=== PATIENT | female | born 1975 | race Caucasian/White ===

== ENCOUNTER 2022-04-19 15:22 | Inpatient (IN) | payer BC, MEDICARE ==
[2022-04-19] MEDS ORDERED: Ondansetron 4 MG/2 ML SDV IVPUSH PRN (15:50)
[2022-04-19] MEDS ORDERED: Folic Acid 50 MG/10 ML MDV IV SCH (16:00)
[2022-04-19] MEDS ORDERED: Dextrose 5%-Lactated Ringers 1,000 ML IV SCH (16:00)
[2022-04-19] MEDS: HYDROmorphone 0.5 MG/0.5 ML Syringe IVPUSH PRN ×3 (16:20→22:45)
[2022-04-19 16:39] LABS: ESTIMATED GFR 116 mL/min (>60)
[2022-04-19] MEDS ORDERED: Enoxaparin 40 MG/0.4 ML Syringe SUBCUT ONE (17:00)
[2022-04-19] MEDS: Potassium Chloride 10 MEQ in Premix Bag 1 BAG IV SCH ×3 (17:12→20:38)
[2022-04-19] MEDS: Pantoprazole 40 MG Vial IVPUSH SCH (17:13)
[2022-04-19] MEDS: Thiamine 100 MG in Sodium Chloride 0.9% 100 ML IV SCH (17:16)
[2022-04-19] MEDS: MVI, Adult with Vitamin K 10 ML in Sodium Chloride 0.9% 1,000 ML IV SCH ×2 (17:16)
[2022-04-19] MEDS: Folic Acid 1 MG in Sodium Chloride 0.9% 50 ML IV SCH (17:17)
[2022-04-19] MEDS ORDERED: Magnesium Sulfate/Water 2 GM in Premix Bag 1 BAG IV ONE (21:30)
[2022-04-20] MEDS: HYDROmorphone 0.5 MG/0.5 ML Syringe IVPUSH PRN ×3 (03:47→13:24)
[2022-04-20] MEDS: Pantoprazole 40 MG Vial IVPUSH SCH (08:13)
[2022-04-20] MEDS: Thiamine 100 MG in Sodium Chloride 0.9% 100 ML IV SCH (08:15)
[2022-04-20] MEDS: Folic Acid 1 MG in Sodium Chloride 0.9% 50 ML IV SCH (09:27)
[2022-04-20] MEDS ORDERED: fentaNYL 250 MCG/5 ML SDV ONE ×2 (10:59→16:30)
[2022-04-20] MEDS ORDERED: Rocuronium 50 MG/5 ML Vial ONE ×3 (11:00→18:28)
[2022-04-20] MEDS ORDERED: Ondansetron 4 MG/2 ML SDV ONE (11:00)
[2022-04-20] MEDS ORDERED: Succinylcholine 200 MG/10 ML MDV ONE (11:00)
[2022-04-20] MEDS ORDERED: Propofol 200 MG/20 ML SDV ONE (11:00)
[2022-04-20] MEDS ORDERED: Dexamethasone 4 MG/ML SDV ONE (11:00)
[2022-04-20] MEDS ORDERED: Glycopyrrolate 0.2 MG/ML 5 ML MDV ONE (11:00)
[2022-04-20] MEDS ORDERED: Neostigmine Methylsulfate 1 MG/ML 5 ML Syringe ONE (11:00)
[2022-04-20] MEDS ORDERED: Bupivacaine 0.5% 50 ML MDV ONE (12:10)
[2022-04-20] MEDS ORDERED: Meropenem 500 MG SDV ONE (12:10)
[2022-04-20] MEDS ORDERED: Lidocaine 1% with EPINEPHrine 1:100,000 50 ML MDV ONE (12:10)
[2022-04-20] MEDS: MVI, Adult with Vitamin K 10 ML in Sodium Chloride 0.9% 1,000 ML IV SCH ×2 (13:24)
[2022-04-20] MEDS ORDERED: Ropivacaine 40 ML, dexAMETHasone 8 MG, EPINEPHrine 0.4 MG, Sodium Chloride 0.9% 37.6 ML NERVRT SCH ×4 (14:00)
[2022-04-20] MEDS ORDERED: Ketamine 14 MG in Sodium Chloride 0.9% 19.86 ML IV SCH (14:00)
[2022-04-20] MEDS ORDERED: Ketamine 500 MG/5 ML MDV IV SCH (14:00)
[2022-04-20] MEDS ORDERED: cefOXitin 2 GM in Sodium Chloride 0.9% 50 ML IV ONE (14:00)
[2022-04-20] MEDS ORDERED: MVI, Adult with Vitamin K 10 ML, Thiamine 200 MG, Chromium/Copper/Mang/Selen/Zn 1 ML in... IV SCH ×4 (16:00)
[2022-04-20] MEDS ORDERED: diphenhydrAMINE 25 MG Cap PO PRN (16:29)
[2022-04-20] MEDS ORDERED: Ondansetron 4 MG/2 ML SDV IVPUSH PRN ×2 (16:29→19:50)
[2022-04-20] MEDS ORDERED: diphenhydrAMINE 50 MG/ML SDV IVPUSH PRN (16:29)
[2022-04-20] MEDS ORDERED: Naloxone 0.4 MG/ML SDV IVPUSH PRN (16:29)
[2022-04-20] MEDS ORDERED: Linezolid 600 MG/300 ML Premix Bag IRR ONE (16:33)
[2022-04-20] MEDS: HYDROmorphone/Normal Saline 6 MG/30 ML PCA Vial IV PRN (16:38)
[2022-04-20] MEDS ORDERED: Naloxone 0.4 MG/ML SDV IV PRN (17:00)
[2022-04-20] MEDS ORDERED: Lactated Ringers 1,000 ML ONE ×2 (17:40→17:41)
[2022-04-20] MEDS ORDERED: fentaNYL 100 MCG/2 ML SDV ONE (18:30)
[2022-04-20] MEDS ORDERED: Acetaminophen 500 MG Tab PO PRN (19:50)
[2022-04-20] MEDS ORDERED: Dextrose 5%-Lactated Ringers 1,000 ML IV SCH ×2 (19:50→21:30)
[2022-04-20] MEDS ORDERED: Metoclopramide 10 MG/2 ML SDV IVPUSH PRN (19:50)
[2022-04-20] MEDS ORDERED: Labetalol 20 MG/4 ML Syringe IVPUSH PRN (19:50)
[2022-04-20] MEDS ORDERED: Scopolamine 1.5 MG Transdermal Patch ONE (20:11)
[2022-04-20] MEDS ORDERED: Labetalol 100 MG/20 ML MDV IVPUSH PRN (21:22)
[2022-04-20] MEDS: cefOXitin 2 GM in Sodium Chloride 0.9% 50 ML IV SCH (21:59)
[2022-04-20] MEDS ORDERED: Pantoprazole 40 MG Vial IVPUSH SCH (22:00)
[2022-04-21] MEDS: HYDROmorphone/Normal Saline 6 MG/30 ML PCA Vial IV PRN ×3 (02:24→22:47)
[2022-04-21] MEDS: cefOXitin 2 GM in Sodium Chloride 0.9% 50 ML IV SCH ×4 (05:01→21:28)
[2022-04-21 05:30] LABS: ESTIMATED GFR 116 mL/min (>60)
[2022-04-21] MEDS: Dextrose 5%-Lactated Ringers 1,000 ML IV SCH (08:51)
[2022-04-21] MEDS: Acetaminophen 500 MG Tab PO SCH ×3 (09:15→23:31)
[2022-04-21] MEDS: SCOPOLAMINE PATCH CHECK TOP SCH (10:21)
[2022-04-21] MEDS: Celecoxib 200 MG Cap PO SCH ×2 (10:21→20:54)
[2022-04-21] MEDS: Magnesium Sulfate/Water 2 GM/50 ML BAG IV SCH ×3 (10:54→21:27)
[2022-04-21] MEDS: hydrOXYzine HCL 100 MG/2 ML SDV IM PRN (13:33)
[2022-04-21] MEDS: MVI, Adult with Vitamin K 10 ML, Thiamine 200 MG, Zinc/Copper/Manganese/Selenium 1 ML i... IV SCH ×4 (17:42)
[2022-04-21] MEDS: Pantoprazole 40 MG Tab.CR PO SCH (20:54)
[2022-04-22] MEDS: diphenhydrAMINE 50 MG/ML SDV IVPUSH PRN ×3 (02:41→18:32)
[2022-04-22] MEDS: cefOXitin 2 GM in Sodium Chloride 0.9% 50 ML IV SCH ×4 (02:59→22:24)
[2022-04-22] MEDS: Magnesium Sulfate/Water 2 GM/50 ML BAG IV SCH ×4 (03:45→20:28)
[2022-04-22] MEDS ORDERED: Iopamidol 612 MG/ML 30 ML SDV PO ONE (04:20)
[2022-04-22 04:51] LABS: ESTIMATED GFR 107 mL/min (>60)
[2022-04-22] MEDS: HYDROmorphone/Normal Saline 6 MG/30 ML PCA Vial IV PRN ×2 (05:31→19:14)
[2022-04-22] MEDS ORDERED: Cyanocobalamin (Vitamin B12) 1,000 MCG/ML SDV IM ONE (09:00)
[2022-04-22] MEDS: Acetaminophen 500 MG Tab PO SCH ×2 (09:05→17:05)
[2022-04-22] MEDS: Celecoxib 200 MG Cap PO SCH ×3 (09:05→20:31)
[2022-04-22] MEDS: SCOPOLAMINE PATCH CHECK TOP SCH (09:06)
[2022-04-22] MEDS: MVI, Adult with Vitamin K 10 ML, Thiamine 200 MG, Zinc/Copper/Manganese/Selenium 1 ML i... IV SCH ×4 (17:05)
[2022-04-22] MEDS: Dextrose 5%-Lactated Ringers 1,000 ML IV SCH (17:06)
[2022-04-22] MEDS: Pantoprazole 40 MG Tab.CR PO SCH (20:31)
[2022-04-23] MEDS: Acetaminophen 500 MG Tab PO SCH ×3 (00:03→15:08)
[2022-04-23] MEDS: diphenhydrAMINE 50 MG/ML SDV IVPUSH PRN ×4 (00:26→22:09)
[2022-04-23] MEDS: Magnesium Sulfate/Water 2 GM/50 ML BAG IV SCH ×4 (03:17→20:00)
[2022-04-23] MEDS: Dextrose 5%-Lactated Ringers 1,000 ML IV SCH ×2 (04:22→17:30)
[2022-04-23] MEDS: cefOXitin 2 GM in Sodium Chloride 0.9% 50 ML IV SCH ×4 (04:23→22:14)
[2022-04-23] MEDS: HYDROmorphone/Normal Saline 6 MG/30 ML PCA Vial IV PRN (05:01)
[2022-04-23] MEDS ORDERED: Meropenem 500 MG SDV ONE (06:31)
[2022-04-23] MEDS ORDERED: Lidocaine 1% with EPINEPHrine 1:100,000 50 ML MDV ONE (06:32)
[2022-04-23] MEDS ORDERED: Bupivacaine 0.5% 50 ML MDV ONE (06:33)
[2022-04-23] MEDS ORDERED: Propofol 200 MG/20 ML SDV ONE ×3 (06:55→07:48)
[2022-04-23] MEDS ORDERED: fentaNYL 100 MCG/2 ML SDV ONE (06:56)
[2022-04-23] MEDS ORDERED: Midazolam 1 MG/ML 2 ML SDV ONE (06:56)
[2022-04-23] MEDS ORDERED: Ropivacaine 40 ML, dexAMETHasone 8 MG, EPINEPHrine 0.4 MG, Sodium Chloride 0.9% 37.6 ML NERVRT SCH ×4 (07:15)
[2022-04-23] MEDS ORDERED: Bupivacaine 0.5% 50 ML MDV INFILT ONE ×2 (07:29)
[2022-04-23] MEDS ORDERED: Lidocaine 1% with EPINEPHrine 1:100,000 50 ML MDV INFILT ONE ×2 (07:31)
[2022-04-23] MEDS ORDERED: Meropenem 500 MG SDV IRR ONE (07:33)
[2022-04-23] MEDS: Celecoxib 200 MG Cap PO SCH ×2 (09:29→20:00)
[2022-04-23] MEDS: HYDROmorphone 2 MG Tab PO PRN ×3 (12:42→22:09)
[2022-04-23] MEDS: Pantoprazole 40 MG Tab.CR PO SCH (20:00)
[2022-04-24] MEDS: Acetaminophen 500 MG Tab PO SCH ×4 (00:39→23:21)
[2022-04-24] MEDS: HYDROmorphone 2 MG Tab PO PRN ×6 (02:27→23:20)
[2022-04-24] MEDS: Magnesium Sulfate/Water 2 GM/50 ML BAG IV SCH (02:27)
[2022-04-24] MEDS: cefOXitin 2 GM in Sodium Chloride 0.9% 50 ML IV SCH ×3 (04:29→16:04)
[2022-04-24] MEDS: Dextrose 5%-Lactated Ringers 1,000 ML IV SCH ×2 (06:34→17:38)
[2022-04-24] MEDS: diphenhydrAMINE 50 MG/ML SDV IVPUSH PRN ×3 (07:11→16:09)
[2022-04-24] MEDS: Celecoxib 200 MG Cap PO SCH ×2 (08:19→21:04)
[2022-04-24] MEDS ORDERED: Magnesium Hydroxide 400 MG/5 ML Susp 30 ML Cup PO ONE (10:00)
[2022-04-24] MEDS: Docusate Sodium 100 MG Cap PO SCH ×2 (10:28→21:04)
[2022-04-24] MEDS: Bisacodyl 5 MG Tab PO SCH ×2 (10:28→21:04)
[2022-04-24] MEDS: Cyclobenzaprine 10 MG Tab PO PRN ×2 (12:55→23:25)
[2022-04-24] MEDS: hydrOXYzine HCL 100 MG/2 ML SDV IM PRN (13:11)
[2022-04-24] MEDS ORDERED: Magnesium Hydroxide 400 MG/5 ML Susp 30 ML Cup PO PRN (18:00)
[2022-04-24] MEDS: Pantoprazole 40 MG Tab.CR PO SCH (21:05)
[2022-04-24] MEDS: diphenhydrAMINE 50 MG/ML SDV IM PRN (21:24)
[2022-04-25] MEDS: HYDROmorphone 2 MG Tab PO PRN ×3 (03:36→11:57)
[2022-04-25] MEDS: diphenhydrAMINE 50 MG/ML SDV IM PRN ×2 (05:07→10:06)
[2022-04-25] MEDS: hydrOXYzine HCL 100 MG/2 ML SDV IM PRN (07:46)
[2022-04-25] MEDS: Acetaminophen 500 MG Tab PO SCH (07:53)
[2022-04-25] MEDS: Bisacodyl 5 MG Tab PO SCH (10:03)
[2022-04-25] MEDS: Docusate Sodium 100 MG Cap PO SCH (10:03)
[2022-04-25] MEDS: Celecoxib 200 MG Cap PO SCH (10:03)
[2022-04-25 11:09] LABS: VITAMIN E(ALPHA TOCOPHEROL) 6.7 mg/L (7.0-25.1); VITAMIN E(GAMMA TOCOPHEROL) 0.9 mg/L (0.5-5.5)
== END 2022-04-25 12:20 | disposition home or self-care (01) | DRG 221 ==
LOC: JP.MS 15:22 → MERGE 15:50 → OBSVTOIN 15:50
PROVIDERS: ADMIT Surgery; ATTEND Surgery
PROC: 0DB80ZZ Excision of Small Intestine, Open Approach (ICD-10-PCS; principal; 2022-04-20)
PROC: 0WPF0JZ Removal of Synthetic Substitute from Abdominal Wall, Open Approach (ICD-10-PCS; 2022-04-20)
PROC: 0WBF0ZX Excision of Abdominal Wall, Open Approach, Diagnostic (ICD-10-PCS; 2022-04-20)
PROC: 0WUF0JZ Supplement Abdominal Wall with Synthetic Substitute, Open Approach (ICD-10-PCS; 2022-04-23)
DX: K95.89 Other complications of other bariatric procedure (principal); Y84.8 Other medical procedures as the cause of abnormal reaction of the patient, or of later complication, without mention of misadventure at the time of the procedure; K56.50 Intestinal adhesions [bands], unspecified as to partial versus complete obstruction; M19.90 Unspecified osteoarthritis, unspecified site; K65.1 Peritoneal abscess; G89.29 Other chronic pain; M54.9 Dorsalgia, unspecified; E53.8 Deficiency of other specified B group vitamins; Z96.643 Presence of artificial hip joint, bilateral; Z88.8 Allergy status to other drugs, medicaments and biological substances; Z98.890 Other specified postprocedural states; Z98.84 Bariatric surgery status; Z88.2 Allergy status to sulfonamides
CPT/HCPCS: 36415; 74240; 74240-26; 80048; 80053; 82306; 82525; 82607; 82728; 82746; 83550; 83605; 83735; 83880; 84100; 84207; 84425; 84446; 84590; 84630; 85025; 85027; 85610; 87070; 87075; 87205; 88300; 88304; 88305; 88307; A9270-GY; C9113; J0131; J0171; J0330; J0694; J1100; J1170; J1200; J1650; J2020; J2185; J2250; J2405; J2704; J2710; J2795; J3010; J3410; J3411; J3420; J3475; J3480; J3490; J7030; J7120; J7121; Q9967

== ENCOUNTER 2022-05-01 17:43 | Inpatient (IN) | payer BC, MEDICARE ==
[2022-05-01] MEDS ORDERED: Non-Formulary Medication 1 Each (Valacyclovir Hcl [Valtrex] 500 MG Tablet) PO PRN (17:50)
[2022-05-01] MEDS ORDERED: Cyclobenzaprine 10 MG Tab PO PRN (17:50)
[2022-05-01] MEDS ORDERED: Ergocalciferol (Vitamin D2) 1.25 MG Cap PO SCH (18:00)
[2022-05-01] MEDS: HYDROmorphone 0.5 MG/0.5 ML Syringe IVPUSH PRN ×2 (18:41→21:57)
[2022-05-01 19:26] LABS: CORONAVIRUS COVID-19 NAA NEGATIVE (NEGATIVE)
[2022-05-01] MEDS: Ondansetron 4 MG/2 ML SDV IVPUSH PRN (20:13)
[2022-05-01] MEDS: Dextrose 5%-Lactated Ringers 1,000 ML IV SCH (21:57)
[2022-05-02] MEDS: HYDROmorphone 0.5 MG/0.5 ML Syringe IVPUSH PRN ×11 (00:02→22:35)
[2022-05-02] MEDS: Ondansetron 4 MG/2 ML SDV IVPUSH PRN ×5 (02:19→22:35)
[2022-05-02] MEDS ORDERED: Iopamidol 612 MG/ML 30 ML SDV PO ONE (04:13)
[2022-05-02] MEDS: Dextrose 5%-Lactated Ringers 1,000 ML IV SCH ×2 (05:54→15:16)
[2022-05-02] MEDS: Pantoprazole 40 MG Tab.CR PO SCH (08:42)
[2022-05-02] MEDS: Cetirizine 10 MG Tab PO SCH (08:42)
[2022-05-02] MEDS: hydrOXYzine HCl 25 MG Tab PO PRN (08:45)
[2022-05-02] MEDS: Azithromycin 125 MG in Sodium Chloride 0.9% 100 ML IV SCH ×2 (10:53→22:25)
[2022-05-03] MEDS: Dextrose 5%-Lactated Ringers 1,000 ML IV SCH ×4 (00:21→23:59)
[2022-05-03] MEDS: HYDROmorphone 0.5 MG/0.5 ML Syringe IVPUSH PRN ×9 (01:45→23:59)
[2022-05-03] MEDS: Ondansetron 4 MG/2 ML SDV IVPUSH PRN ×4 (03:41→21:25)
[2022-05-03 05:19] LABS: ESTIMATED GFR 116 mL/min (>60)
[2022-05-03] MEDS ORDERED: Scopolamine 1.5 MG Transdermal Patch TRDERM PRN (07:58)
[2022-05-03] MEDS: Cetirizine 10 MG Tab PO SCH (08:42)
[2022-05-03] MEDS: Pantoprazole 40 MG Tab.CR PO SCH (08:42)
[2022-05-03] MEDS ORDERED: Propofol 200 MG/20 ML SDV ONE (09:25)
[2022-05-03] MEDS ORDERED: fentaNYL 50 MCG/ML SDV ONE (09:25)
[2022-05-03] MEDS ORDERED: Midazolam 1 MG/ML 2 ML SDV ONE (09:25)
[2022-05-03] MEDS: Azithromycin 125 MG in Sodium Chloride 0.9% 100 ML IV SCH ×2 (09:47→21:20)
[2022-05-03] MEDS ORDERED: Lidocaine 1% 2 ML ONE (10:17)
[2022-05-04] MEDS ORDERED: Ondansetron 4 MG Tab.DIS PO PRN (00:12)
[2022-05-04] MEDS: Pantoprazole 40 MG Tab.CR PO SCH (07:36)
[2022-05-04] MEDS: HYDROmorphone 2 MG Tab PO PRN ×4 (08:10→23:27)
[2022-05-04] MEDS: VERIFY SCOP PATCH TOP SCH (08:11)
[2022-05-04] MEDS: Cetirizine 10 MG Tab PO SCH (08:12)
[2022-05-04] MEDS: Metoclopramide 10 MG Tab PO SCH ×3 (09:25→21:58)
[2022-05-04] MEDS: hydrOXYzine HCl 25 MG Tab PO PRN (09:27)
[2022-05-04] MEDS: Bisacodyl 5 MG Tab PO SCH ×2 (09:43→21:58)
[2022-05-04] MEDS: Docusate Sodium 100 MG Cap PO SCH ×2 (09:43→21:58)
[2022-05-05] MEDS: HYDROmorphone 2 MG Tab PO PRN ×5 (03:37→23:35)
[2022-05-05] MEDS: Metoclopramide 10 MG Tab PO SCH ×4 (03:37→21:31)
[2022-05-05] MEDS ORDERED: Bupivacaine 0.5% 50 ML MDV ONE (06:55)
[2022-05-05] MEDS ORDERED: Lidocaine 1% with EPINEPHrine 1:100,000 50 ML MDV ONE (06:56)
[2022-05-05] MEDS ORDERED: fentaNYL 100 MCG/2 ML SDV ONE (07:06)
[2022-05-05] MEDS ORDERED: Midazolam 1 MG/ML 2 ML SDV ONE (07:06)
[2022-05-05] MEDS ORDERED: Propofol 200 MG/20 ML SDV ONE ×2 (07:06→07:29)
[2022-05-05] MEDS ORDERED: Sodium Chloride 0.9% 10 ML ONE (07:19)
[2022-05-05] MEDS ORDERED: Lidocaine 1% with EPINEPHrine 1:100,000 20 ML MDV INJECT ONE (07:40)
[2022-05-05] MEDS ORDERED: Bupivacaine 0.5% 50 ML MDV INJECT ONE (07:40)
[2022-05-05] MEDS ORDERED: Dextrose 5%-Lactated Ringers 1,000 ML IV SCH (09:00)
[2022-05-05] MEDS: Docusate Sodium 100 MG Cap PO SCH ×2 (09:18→21:31)
[2022-05-05] MEDS: Cetirizine 10 MG Tab PO SCH (09:18)
[2022-05-05] MEDS: VERIFY SCOP PATCH TOP SCH (09:18)
[2022-05-05] MEDS: Pantoprazole 40 MG Tab.CR PO SCH (09:18)
[2022-05-05] MEDS: Bisacodyl 5 MG Tab PO SCH ×2 (09:18→21:31)
[2022-05-05] MEDS: Magnesium Sulfate/Water 2 GM in Premix Bag 1 BAG IV SCH ×3 (10:05→21:33)
[2022-05-05] MEDS: 1: AA 5%/Calcium/D15W/Lytes 1,000 ML with MVI, Adult with Vitamin K 10 ML, Zinc/Copper/M IV SCH ×6 (11:00→23:39)
[2022-05-05] MEDS: Fat Emulsion 100 ML IV SCH (17:19)
[2022-05-06] MEDS: Magnesium Sulfate/Water 2 GM in Premix Bag 1 BAG IV SCH ×4 (03:23→21:45)
[2022-05-06] MEDS: Metoclopramide 10 MG Tab PO SCH ×4 (03:23→21:46)
[2022-05-06] MEDS: HYDROmorphone 2 MG Tab PO PRN ×5 (03:24→20:10)
[2022-05-06 04:57] LABS: ESTIMATED GFR 123 mL/min (>60)
[2022-05-06] MEDS ORDERED: Central Total Parenteral Nutrition Bag SCH (07:30)
[2022-05-06] MEDS: Pantoprazole 40 MG Tab.CR PO SCH (07:45)
[2022-05-06] MEDS: Bisacodyl 5 MG Tab PO SCH ×2 (08:34→20:10)
[2022-05-06] MEDS: Docusate Sodium 100 MG Cap PO SCH ×2 (08:34→20:10)
[2022-05-06] MEDS: Cetirizine 10 MG Tab PO SCH (08:34)
[2022-05-06] MEDS: VERIFY SCOP PATCH TOP SCH (08:34)
[2022-05-06] MEDS: 1: AA 5%/Calcium/D15W/Lytes 1,000 ML with MVI, Adult with Vitamin K 10 ML, Zinc/Copper/M IV SCH ×3 (11:59)
[2022-05-06] MEDS: hydrOXYzine HCl 25 MG Tab PO PRN (14:27)
[2022-05-06] MEDS: Fat Emulsion 100 ML IV SCH (16:05)
[2022-05-07] MEDS: HYDROmorphone 2 MG Tab PO PRN ×3 (00:22→08:15)
[2022-05-07] MEDS: 1: AA 5%/Calcium/D15W/Lytes 1,000 ML with MVI, Adult with Vitamin K 10 ML, Zinc/Copper/M IV SCH ×3 (00:22)
[2022-05-07] MEDS: Metoclopramide 10 MG Tab PO SCH ×2 (04:08→09:08)
[2022-05-07] MEDS: Magnesium Sulfate/Water 2 GM in Premix Bag 1 BAG IV SCH ×2 (04:10→09:08)
[2022-05-07 05:05] LABS: ESTIMATED GFR 123 mL/min (>60)
[2022-05-07] MEDS: Pantoprazole 40 MG Tab.CR PO SCH (07:38)
[2022-05-07] MEDS: Docusate Sodium 100 MG Cap PO SCH (08:15)
[2022-05-07] MEDS: Cetirizine 10 MG Tab PO SCH (08:15)
[2022-05-07] MEDS: Bisacodyl 5 MG Tab PO SCH (08:15)
[2022-05-07] MEDS: VERIFY SCOP PATCH TOP SCH (08:16)
[2022-05-08] MEDS ORDERED: 1: AA 5%/Calcium/D15W/Lytes 1,000 ML with MVI, Adult with Vitamin K 10 ML, Zinc/Copper/M IV SCH ×3 (01:00)
== END 2022-05-07 10:20 | disposition home or self-care (01) | DRG 950 ==
LOC: JP.MS 17:43
PROVIDERS: ADMIT Family Medicine; ATTEND Surgery
PROC: 0DJ08ZZ Inspection of Upper Intestinal Tract, Via Natural or Artificial Opening Endoscopic (ICD-10-PCS; principal; 2022-05-03)
PROC: 02H633Z Insertion of Infusion Device into Right Atrium, Percutaneous Approach (ICD-10-PCS; 2022-05-05)
DX: R10.9 Unspecified abdominal pain (principal); G89.29 Other chronic pain; M54.9 Dorsalgia, unspecified; Z96.642 Presence of left artificial hip joint; D50.9 Iron deficiency anemia, unspecified; E66.01 Morbid (severe) obesity due to excess calories; K59.00 Constipation, unspecified; Z98.890 Other specified postprocedural states; Z88.2 Allergy status to sulfonamides; Z98.84 Bariatric surgery status; Z88.5 Allergy status to narcotic agent; Z88.8 Allergy status to other drugs, medicaments and biological substances; Z79.82 Long term (current) use of aspirin; Z79.899 Other long term (current) drug therapy; Z90.49 Acquired absence of other specified parts of digestive tract; Z98.1 Arthrodesis status; Z56.0 Unemployment, unspecified; Z68.35 Body mass index [BMI] 35.0-35.9, adult
CPT/HCPCS: 0241U; 36415; 74240; 74240-26; 80053; 82728; 83735; 84100; 85025; 85027; A9270-GY; C1751; J0456; J1170; J1642; J2250; J2405; J2704; J3010; J3475; J3490; J7121; P9047; Q0162; Q9967

== ENCOUNTER 2022-05-13 08:57 | Emergency (ER) | payer BC, MEDICARE ==
[2022-05-13] MEDS ORDERED: Lactated Ringers 1,000 ML IV ONE (09:39)
[2022-05-13] MEDS ORDERED: HYDROmorphone 0.5 MG/0.5 ML Syringe IVPUSH ONE (09:40)
[2022-05-13] MEDS ORDERED: Lactated Ringers 1,000 ML IV SCH (10:00)
[2022-05-13] MEDS ORDERED: Iopamidol 612 MG/ML 100 ML Bottle IV PRN (10:18)
[2022-05-13] MEDS ORDERED: HYDROmorphone 1 MG/ML Syringe IVPUSH ONE (11:49)
[2022-05-13 13:08] LABS: CORONAVIRUS COVID-19 NAA NEGATIVE (NEGATIVE)
== END 2022-05-13 12:55 | disposition home or self-care (01) ==
LOC: JP.ED 08:57
DX: R10.12 Left upper quadrant pain (principal); Z88.2 Allergy status to sulfonamides; Z88.5 Allergy status to narcotic agent; Z79.82 Long term (current) use of aspirin; Z79.899 Other long term (current) drug therapy; Z86.16 Personal history of COVID-19; Z20.822 Contact with and (suspected) exposure to COVID-19
CPT/HCPCS: 0241U; 74240; 74248; 96361; 96374; 96375; 96376; 99284; J1170; J1642; J1790; J7120

== ENCOUNTER 2022-05-15 09:07 | Emergency (ER) | payer BC ==
[2022-05-15] MEDS: propofoL 100 ML IV SCH ×2 (09:56→12:38)
[2022-05-15] MEDS ORDERED: Sodium Chloride 0.9% 10 ML Syringe FLUSH PRN (10:19)
[2022-05-15] MEDS ORDERED: Iopamidol 755 Mg/ML 100 ML Bottle IV SCH (10:30)
[2022-05-15] MEDS ORDERED: Sodium Chloride 0.9% 100 ML IV SCH (10:30)
[2022-05-15] MEDS ORDERED: Norepinephrine Bit/D5W Premix 4 MG in Premix Bag 1 BAG IV SCH (10:45)
== END 2022-05-15 14:50 ==
LOC: JP.ED 09:07
DX: L76.34 Postprocedural seroma of skin and subcutaneous tissue following other procedure (principal); T82.9XXA Unspecified complication of cardiac and vascular prosthetic device, implant and graft, initial encounter; J90 Pleural effusion, not elsewhere classified; I31.39 Other pericardial effusion (noninflammatory); R57.9 Shock, unspecified; E87.4 Mixed disorder of acid-base balance; R00.0 Tachycardia, unspecified; Z86.16 Personal history of COVID-19; Z88.2 Allergy status to sulfonamides; Z88.5 Allergy status to narcotic agent; Z79.899 Other long term (current) drug therapy; Z79.82 Long term (current) use of aspirin
CPT/HCPCS: 31500; 36415; 36556; 36600; 43752; 51702; 71045; 71275; 82803; 83605; 83880; 87070; 87077; 87186; 87205; 87635; 93005; 96365; 96366; 96368; 99291; J1642; J2704; J3370; J3490; J7050; U0002